=== PATIENT | male | born 1945 | race Caucasian/White ===

== ENCOUNTER 2021-08-18 13:34 | Emergency (ER) | payer MEDICARE ==
[2021-08-18 14:38] LABS: #Eosinphils 0.1 10x3/uL (0.0-0.5); #Monocytes 0.6 10x3/uL (0.0-1.1); #Neutrophils 3.7 10x3/uL (1.5-8.4); %Basophils 0.6 % (0.0-2.0); %Lymphocytes 11.1 % (18.0-47.0); %Monocytes 12.3 % (0.0-10.0); %Neutrophils 73.8 % (40.0-75.0); Hemoglobin 12.3 g/dL (13.5-17.5); Mean Corpuscular Hemoglobin 32.2 pg (27.0-33.0); Mean Corpuscular Volume 94.8 fl (81.2-95.1); Mean Platelet Volume 9.8 fl (7.4-10.4); Platelet Count 204 10x3/uL (150-450); RBC Distribution Width 13.4 % (11.5-14.5); Red Blood Cell (RBC) Count 3.82 10x6/uL (4.32-5.72)
[2021-08-18 14:47] LABS: SARS-CoV-2 NAA Rapid Test DETECTED (NotDetected)
[2021-08-18 14:49] LABS: ALT (SGPT) 23 U/L (8-55); AST (SGOT) 21 U/L (5-34); Albumin 4.2 g/dL (3.4-4.8); Alkaline Phosphatase 78 U/L (40-110); Anion Gap 12 mmol/L (10-20); BUN (Urea Nitrogen) 11 mg/dL (8.4-25.7); Bilirubin, Total 0.8 mg/dL (0.2-1.2); Calc. Creatinine Clearance 0 mL/min (70-130); Calcium 8.7 mg/dL (7.8-10.44); Carbon Dioxide 29 mmol/L (23-31); Chloride 105 mmol/L (98-107); Globulin 2.6 g/dL (2.4-3.5); Glucose 146 mg/dL (83-110); Potassium 3.4 mmol/L (3.5-5.1); Protein, Total 6.8 g/dL (5.8-8.1); Sodium 143 mmol/L (136-145)
== END 2021-08-18 17:29 | disposition home or self-care (01) ==
LOC: CSHERS 13:34
DX: U07.1 COVID-19 (principal); I10 Essential (primary) hypertension
CPT/HCPCS: 0240U; 71045; 80053; 83880; 84484; 85025; 93005; 93010

== ENCOUNTER 2022-04-07 13:24 | Emergency (ER) | payer MEDICARE ==
[2022-04-07 15:34] LABS: Bilirubin Neg (Negative); Blood, Urine 25 (Negative); Clarity Cloudy (Clear); Glucose, Urine (Dipstick) Normal (Negative); Ketone, Urine Negative (Negative); Leukocyte 500 (Negative); Nitrite Negative (Negative); Protein, Urine (Dipstick) 100 mg/dl (Neg-Trace); Specific Gravity, Urine 1.015 (1.002-1.036); Urobilinogen Normal mg/dL (Less than 2)
[2022-04-07 15:39] LABS: #Eosinphils 0.1 10x3/uL (0.0-0.5); #Monocytes 0.6 10x3/uL (0.0-1.1); #Neutrophils 7.4 10x3/uL (1.5-8.4); %Basophils 0.2 % (0.0-2.0); %Eosinophils 0.9 % (0.0-6.0); %Lymphocytes 5.2 % (18.0-47.0); %Monocytes 7.4 % (0.0-10.0); %Neutrophils 86.1 % (40.0-75.0); Hemoglobin 11.7 g/dL (13.5-17.5); Mean Corpuscular HGB CONC 34.5 g/dL (32.0-36.0); Mean Corpuscular Hemoglobin 32.5 pg (27.0-33.0); Mean Corpuscular Volume 94.2 fl (81.2-95.1); Mean Platelet Volume 9.3 fl (7.4-10.4); Platelet Count 302 10x3/uL (150-450); White Blood Cell (WBC) Count 8.6 10x3/uL (3.5-10.5)
[2022-04-07 15:51] LABS: Anion Gap 14 mmol/L (10-20); BUN (Urea Nitrogen) 22 mg/dL (8.4-25.7); Calc. Creatinine Clearance 0 mL/min (70-130); Carbon Dioxide 24 mmol/L (23-31); Chloride 107 mmol/L (98-107); Potassium 3.5 mmol/L (3.5-5.1); Sodium 141 mmol/L (136-145)
[2022-04-07 15:52] LABS: ALT (SGPT) 15 U/L (8-55); AST (SGOT) 11 U/L (5-34); Albumin 3.8 g/dL (3.4-4.8); Alkaline Phosphatase 91 U/L (40-110); Bilirubin, Total 1.4 mg/dL (0.2-1.2); Estimated GFR 40; Globulin 2.9 g/dL (2.4-3.5); Glucose 185 mg/dL (83-110); Protein, Total 6.7 g/dL (5.8-8.1)
[2022-04-07 15:56] LABS: Bacteria/HPF 1+ HPF (None Seen); Squamous Epithelial 0-3 HPF (0-3); WBC/HPF Greater Than 50 HPF (0-3)
[2022-04-07] MEDS ORDERED: cefTRIAXone\\ROCEPHIN 1 GM VIAL ONE (17:12)
[2022-04-07] MEDS ORDERED: Lidocaine 1% PF 5 ML VIAL ONE (17:12)
== END 2022-04-07 17:21 | disposition home or self-care (01) ==
LOC: CSHERS 13:24
DX: N39.0 Urinary tract infection, site not specified (principal); R33.9 Retention of urine, unspecified; I10 Essential (primary) hypertension
CPT/HCPCS: 36415; 51701; 80053; 81003; 81015; 85025; 87077; 87086; 96372; J0696

== ENCOUNTER 2023-04-18 11:28 | Emergency (ER) | payer MEDICARE ==
[2023-04-18] MEDS ORDERED: Ondansetron PF 4 MG/2 ML Vial ONE (12:20)
[2023-04-18 12:27] LABS: #Eosinphils 0.2 10x3/uL (0.0-0.5); #Monocytes 0.6 10x3/uL (0.0-1.1); #Neutrophils 5.2 10x3/uL (1.5-8.4); %Basophils 0.4 % (0.0-2.0); %Eosinophils 2.8 % (0.0-6.0); %Lymphocytes 10.5 % (18.0-47.0); %Monocytes 9.2 % (0.0-10.0); %Neutrophils 76.7 % (40.0-75.0); Hematocrit 38.4 % (38.8-50.0); Mean Corpuscular HGB CONC 33.9 g/dL (32.0-36.0); Mean Corpuscular Hemoglobin 33.1 pg (27.0-33.0); Mean Corpuscular Volume 97.7 fl (81.2-95.1); Platelet Count 264 10x3/uL (150-450); RBC Distribution Width 13.1 % (11.5-14.5); Red Blood Cell (RBC) Count 3.93 10x6/uL (4.32-5.72); White Blood Cell (WBC) Count 6.8 10x3/uL (3.5-10.5)
[2023-04-18 12:34] LABS: SARS-CoV-2 NAA Rapid Test Not Detected (NotDetected)
[2023-04-18 12:47] LABS: ALT (SGPT) 20 U/L (8-55); AST (SGOT) 28 U/L (5-34); Albumin 4.1 g/dL (3.4-4.8); Alkaline Phosphatase 70 U/L (40-110); Anion Gap 19 mmol/L (10-20); BUN (Urea Nitrogen) 28 mg/dL (8.4-25.7); Calc. Creatinine Clearance 0 mL/min (70-130); Calcium 8.6 mg/dL (7.8-10.44); Carbon Dioxide 21 mmol/L (23-31); Chloride 107 mmol/L (98-107); Estimated GFR 32; Globulin 2.9 g/dL (2.4-3.5); Glucose 144 mg/dL (83-110); Potassium 3.8 mmol/L (3.5-5.1); Sodium 143 mmol/L (136-145)
[2023-04-18 14:51] LABS: Troponin I 0.025 ng/mL (< 0.028)
[2023-04-18 15:04] LABS: Bilirubin Neg (Negative); Blood, Urine Negative (Negative); Glucose, Urine (Dipstick) Normal (Negative); Ketone, Urine Negative (Negative); Leukocyte 25 (Negative); Nitrite Negative (Negative); Protein, Urine (Dipstick) 15 mg/dl (Neg-Trace); Specific Gravity, Urine 1.015 (1.005-1.030); Urobilinogen Normal mg/dL (Less than 2)
[2023-04-18] MEDS ORDERED: Azithromycin 250 MG TAB ONE (15:04)
[2023-04-18 15:05] LABS: Clarity Hazy (Clear)
[2023-04-18 15:47] LABS: Bacteria/HPF 2+ HPF (None Seen); CAUTI Indications for Culture Pelvic or flank pain; RBC/HPF 0-3 HPF (0-3); Squamous Epithelial 0-3 HPF (0-3)
[2023-04-18 15:48] LABS: Mucous/LPF 2+ LPF (<2+)
[2023-04-18 16:14] LABS: Urine Culture Reflex Yes Yes
== END 2023-04-18 16:28 | disposition home or self-care (01) ==
LOC: CSHERS 11:28
DX: J01.90 Acute sinusitis, unspecified (principal); E11.9 Type 2 diabetes mellitus without complications; E78.5 Hyperlipidemia, unspecified; I10 Essential (primary) hypertension; Z79.84 Long term (current) use of oral hypoglycemic drugs; Z79.899 Other long term (current) drug therapy; Z20.822 Contact with and (suspected) exposure to COVID-19
CPT/HCPCS: 0240U; 71045; 80053; 81001; 83880; 84484; 85025; 87086; 93005; 36415; 96361; 96374; J2405